=== PATIENT | female | born 1980 | race Hispanic/Latino ===

== ENCOUNTER 2018-11-22 13:02 | Emergency (ER) | payer OTHER ==
[2018-11-22] MEDS ORDERED: Dexamethasone 4 mg/ml Vial ONE (13:19)
== END 2018-11-22 15:10 | disposition home or self-care (01) ==
LOC: ERS 13:02
DX: J45.901 Unspecified asthma with (acute) exacerbation (principal); F41.9 Anxiety disorder, unspecified; F17.210 Nicotine dependence, cigarettes, uncomplicated; Z79.51 Long term (current) use of inhaled steroids
CPT/HCPCS: 94640; J1100; J7620

== ENCOUNTER 2019-03-13 09:19 | Inpatient (IN) | payer OTHER, SELFPAY ==
[2019-03-13] MEDS ORDERED: Albuterol Sulfate 2.5 mg/3 ml Neb ONE ×2 (09:44→10:50)
[2019-03-13 09:47] LABS: #Lymphocytes 0.7 thou/uL (1.20-3.40); #Monocytes 0.5 thou/uL (0.11-0.59); #Neutrophils 4.7 thou/uL (1.40-6.50); %Basophils 0.2 % (0.0-1.0); %Eosinophils 0.1 % (0.0-10.0); %Lymphocytes 11.4 % (21.0-51.0); %Monocytes 7.7 % (0.0-10.0); %Neutrophils 80.7 % (42.0-75.0); Hemoglobin 14.8 g/dL (12.0-16.0); Mean Corpuscular HGB CONC 33.7 g/dL (32.0-36.0); Mean Corpuscular Hemoglobin 30.9 pg (27.0-31.0); Mean Corpuscular Volume 91.6 fL (78.0-98.0); Platelet Count 168 thou/uL (130-400); RBC Distribution Width 13.3 % (11.5-14.5); White Blood Cell (WBC) Count 5.8 thou/uL (4.8-10.8)
--- NOTE | 2019-03-13 09:50 | RAD ---
Chest AP view INDICATION: Shortness of breath with cough headache and fever COMPARISON: July 19, 2016 FINDINGS: Lungs:Accounting for exam technique, the lungs are clear. No consolidation is evident. Cardiac silhouette:The cardiomediastinal silhouette appears within normal limits. Pulmonary vasculature:Normal Pleural spaces:No pleural effusion or pneumothorax is demonstrated. Upper abdomen:Cholecystectomy clips Osseous structures: No acute osseous abnormality. Additional findings:None. IMPRESSION: No acute cardiopulmonary abnormality.
[2019-03-13] MEDS ORDERED: methylPREDNISolone Sod Succ/PF 125 MG/2 ML VIAL ONE (09:57)
[2019-03-13] MEDS ORDERED: Acetaminophen 325 MG TAB ONE (09:57)
[2019-03-13] MEDS ORDERED: cefTRIAXone\\ROCEPHIN 2 GM VIAL ONE (09:57)
[2019-03-13 10:26] LABS: Albumin 4.2 g/dL (3.5-5.0); Anion Gap 14 mmol/L (10-20); Bilirubin, Total 1.3 mg/dL (0.2-1.2); Carbon Dioxide 22 mmol/L (22-29); Chloride 100 mmol/L (98-107); Globulin 2.9 g/dL (2.4-3.5); Glucose 103 mg/dL (70-105); Potassium 3.7 mmol/L (3.5-5.1); Protein, Total 7.1 g/dL (6.0-8.3); Sodium 132 mmol/L (136-145)
[2019-03-13 10:40] LABS: ALT (SGPT) 37 U/L (8-55); AST (SGOT) 33 U/L (5-34); Alkaline Phosphatase 82 U/L (40-110); BUN (Urea Nitrogen) 7 mg/dL (7.0-18.7); Calc. Creatinine Clearance 0 mL/min (70-130); Estimated GFR-MDRD 86
[2019-03-13] MEDS ORDERED: Magnesium 2 GM/50 ML BAG (IN WATER) ONE (10:40)
[2019-03-13] MEDS ORDERED: Azithromycin 500 MG VIAL ONE (10:41)
[2019-03-13] MEDS ORDERED: Bisacodyl 10 MG SUPP PR PRN (12:04)
[2019-03-13] MEDS ORDERED: Senokot S 8.6-50 MG TAB PO PRN (12:04)
[2019-03-13] MEDS ORDERED: Ondansetron PF 4 MG/2 ML Vial IVP PRN (12:04)
[2019-03-13] MEDS ORDERED: Guaifenesin DM 100-10/5 ML UDCUP PO PRN (12:04)
--- NOTE | 2019-03-13 12:44 | HP ---
REASON FOR ADMISSION: Acute asthma exacerbation, acute respiratory failure with hypoxia on BiPAP. HISTORY OF PRESENTING ILLNESS: The patient gives history of having cough with shortness of breath from last 2 days. Last night, she could not sleep, drink, or eat anything. She has cough with expectoration of yellow sputum. Had a fever at home. On arrival, had temperature of 101.4 degrees here. She states that she has had a flu shot for this year. She admits to using meth 3 days back and smokes 2 to 3 cigarettes a day. No complaints of chest pain or palpitation. The patient has had prior hospitalizations here for asthma exacerbation. PAST MEDICAL AND SURGICAL HISTORY: History of asthma, prior upper endoscopy done in July 2015 with possible eosinophilic esophagitis seen with erosive gastritis, prior history of multiple infections in her hand and left leg with staph. She has had surgery on the left hand in 2009, cholecystectomy, and left foot surgery. CURRENT MEDICATION: Clonidine p.r.n. for anxiety. ALLERGIES: ALLERGIC TO SULFA AND TRIMETHOPRIM. PERSONAL HISTORY: Smokes 2 to 3 cigarettes. Drinks only on the weekends. Has used meth 3 days back. Does not use cocaine, but uses marijuana. Works as a cook at [employer]. She stays with her friends. Has 2 children, 11 and 13 years old. FAMILY HISTORY: Mother has hypertension and diabetes. Grandmother has had breast cancer. CODE STATUS: Full. Power of science teacher is a children's father, Mr. Dave Medina. REVIEW OF SYSTEMS: CONSTITUTIONAL: Negative for weight loss or gain, ability to conduct usual activities. SKIN: Negative for rash, itching. EYES: Negative for double vision, pain. ENT/MOUTH: Negative for nose bleeding, neck stiffness, pain, tenderness. CARDIOVASCULAR: Negative for palpitations, dyspnea on exertion, orthopnea. RESPIRATORY: Negative for shortness of breath, wheezing, cough, hemoptysis, fever or night sweats. GASTROINTESTINAL: Negative for poor appetite, abdominal pain, heartburn, nausea , vomiting, constipation, or diarrhea. GENITOURINARY: Negative for urgency, frequency, dysuria, nocturia. MUSCULOSKELETAL: Negative for pain, swelling. NEUROLOGIC/PSYCHIATRIC: Negative for anxiety, depression. ALLERGY/IMMUNOLOGIC: Negative for skin rash, bleeding tendency. PHYSICAL EXAMINATION: GENERAL: The patient is a 39-year-old female, who is currently in moderate respiratory distress on BiPAP. VITAL SIGNS: Blood pressure 130/76, pulse 110 per minute, respiratory rate 26 per minute, temperature 101.4 degrees Fahrenheit, and saturating 93% on BiPAP. NECK: Supple. No elevated JVD. HEENT: Eyes; extraocular muscles intact. Pupils reacting to light. Oral cavity, mucous membranes are dry. No exudates or congestion. CARDIOVASCULAR: S1 and S2 heard. Regular rhythm, but tachycardic. RESPIRATORY: Air entry 1+ bilateral. Wheezes plus extensive both sides. ABDOMEN: Soft. Bowel sounds heard. No tenderness, rigidity, or guarding. EXTREMITIES: No peripheral edema or calf tenderness. VASCULAR: Peripheral pulses 1+ bilateral. No ischemic ulcerations or gangrene. CENTRAL NERVOUS SYSTEM: No gross focal deficits noted. The patient is alert and oriented well. PSYCHIATRIC: The patient's mood is euthymic. No hallucinations or delusions. LABORATORY DATA: Chest x-ray done shows no acute cardiopulmonary abnormalities. Influenza A and B antigens were negative. Electrolytes are stable. BUN 4, creatinine 0.7, total bilirubin 1.3. AST, ALT, and alkaline phosphatase within normal limits. Albumin 4.2. White count of 5.8, hemoglobin and hematocrit of 14 and 44, platelet count 168, MCV is 91 with 80% neutrophils. CLINICAL IMPRESSION AND PLAN: The patient will be admitted to IM for severe asthma exacerbation with acute respiratory failure with hypoxia. She is currently tolerating BiPAP. She has received magnesium sulfate 2 g IV, multiple nebulizations, ceftriaxone, and Zithromax along with 125 mg Solu-Medrol in the ER. She has also received a total of 2 L IV fluid in the ER. We will continue her on DuoNebs, empiric Levaquin, Solu-Medrol 40 mg IV q.6 hourly, and normal saline at 80 mL per hour. We will consult Dr. Chappell, who is on-call for Pulmonology. Blood cultures have been obtained in the ER. Urine and viral respiratory pathogen, PCR will be obtained as well. We will continue to closely monitor her in IM. Prior to discharge, she will be optimized on asthma medications. She was also counseled with regard to substance use. We will obtain a urine drug screen to find out if there are any other drugs other than meth and marijuana that she used 3 days back. Job ID: [id number] [facility]
[2019-03-13 12:50] LABS: Acetaminophen Less than 6.0 mcg/mL (10.0-30.0); Alcohol Less than 10 mg/dL (Less than 10); Salicylate Less than 8.0 mg/dL (15.0-30.0)
[2019-03-13 14:41] VITALS: BMI 26.9
[2019-03-13 15:29] LABS: Amphetamine Detected (NotDetected); Barbiturates Screen Not Detected (NotDetected); Benzodiazepine Screen Not Detected (NotDetected); Cocaine Metabolite Screen Not Detected (NotDetected); Medtox Control Line Valid? VALID (VALID); Medtox Reader # READER 4; Methadone Not Detected (NotDetected); Methamphetamine Detected (NotDetected); Opiate Screen Not Detected (NotDetected); Oxycodone Screen Not Detected (NotDetected); Phencyclidine (PCP) Not Detected (NotDetected); THC/Cannabinoid Screen Not Detected (NotDetected); Tricyclic Screen Not Detected (NotDetected)
[2019-03-13] MEDS: methylPREDNISolone Sod Succ 40 MG VIAL IVP SCH ×3 (15:34→23:29)
[2019-03-13] MEDS: Levofloxacin 750 mg/D5W 500 MG in Premix Bag 1 BAG IVPB SCH (15:35)
[2019-03-13] MEDS: Sodium Chloride 0.9% 1,000 ML IV SCH ×2 (15:35→20:53)
[2019-03-13] MEDS ORDERED: Magnesium 2 GM/50 ML 2 GM in Premix Bag 1 BAG IVPB SCH (16:30)
--- NOTE | 2019-03-13 16:46 | CON ---
DATE OF CONSULTATION: 03/13/2019 HISTORY OF PRESENT ILLNESS: Delfina Cruz is a 39-year-old female with longstanding history of tobacco abuse, 2 years ago, substance abuse, who now presented with a several-day history of increasing shortness of breath, coughing, and wheezing. She apparently has asthma. Unresponsive to her usual rescue inhaler. She sees a local physician here locally. PAST MEDICAL HISTORY: Otherwise pertinent for hypertension; it is unclear whether she takes any medication. History of cellulitis and history of apparently autoimmune disease. PREVIOUS SURGERIES: Cholecystectomy. Staph infection, foot. SOCIAL HISTORY: Drinks alcohol. Smokes. Abuse meth in the past. She is a cook. ALLERGIES: APPARENTLY SULFA. HOME MEDICATIONS: Supposed to include Catapres 0.1 twice a day and Ativan p.r.n. REVIEW OF SYSTEMS: Otherwise, negative. PHYSICAL EXAMINATION: VITAL SIGNS: Sats are 96% on room air, temperature 98, and blood pressure 138/80. CHEST: Bilateral wheezing, prolonged expiration. CARDIAC: Normal S1, S2. No gallops. ABDOMEN: No masses. LABORATORY DATA: Sodium 132. Toxicology screen shows methamphetamines, salicylates. Flu test was negative. IMPRESSION: Chronic obstructive pulmonary disease, asthma exacerbation, ongoing drug abuse, but claims she is not using any. PLAN: Agree with steroids, neb treatments, empiric antibiotics. She is ongoing counseling regarding her drug abuse problem. This is a consultation note, 70 minutes, 50% direct patient care. Job ID: [id number]
[2019-03-13] MEDS: Mometasone/Formoterol 120 PUFF INHALER INH SCH (19:31)
[2019-03-13] MEDS: Famotidine 20 MG TAB PO SCH (20:54)
[2019-03-14] MEDS: Acetaminophen 325 MG TAB PO PRN ×2 (02:18→16:06)
[2019-03-14] MEDS ORDERED: Mometasone/Formoterol 120 PUFF INHALER ONE (06:56)
[2019-03-14] MEDS: Mometasone/Formoterol 120 PUFF INHALER INH SCH (07:13)
[2019-03-14] MEDS ORDERED: Enoxaparin Sodium 40 MG/0.4 ML SYRINGE SC SCH (09:00)
[2019-03-14 12:16] VITALS: BP 126/77
[2019-03-14] MEDS: methylPREDNISolone Sod Succ 40 MG VIAL IVP SCH ×2 (12:16→12:33)
[2019-03-14] MEDS: Famotidine 20 MG TAB PO SCH (12:17)
[2019-03-14] MEDS: Levofloxacin 750 mg/D5W 500 MG in Premix Bag 1 BAG IVPB SCH (12:33)
--- NOTE | 2019-03-14 14:14 | PRG ---
DATE OF SERVICE: 03/14/2019 SUBJECTIVE: This morning, she is better, less short of breath, less cough, and less wheezing. Her drug screen was positive for methamphetamine and amphetamine. OBJECTIVE: VITAL SIGNS: Saturations are 100% on room air, respiratory rate 18, temperature 98, blood pressure 120/77. CHEST: Minimal wheezing. CARDIAC: Normal S1 and S2. No gallops. ABDOMEN: No mass. IMPRESSION: Chronic obstructive pulmonary disease, bronchial asthma exacerbation, drug abuse. Switch over to oral medication. She can probably be transferred to monitored bed. Pulmonary/Critical Care will follow. Job ID: [id number]
[2019-03-14 15:22] VITALS: TEMP 98.6
[2019-03-14] MEDS ORDERED: predniSONE 20 MG TAB PO SCH (17:00)
[2019-03-14 18:41] LABS: Hemoglobin 12.6 g/dL (12.0-16.0); Red Blood Cell (RBC) Count 4.09 mill/uL (4.20-5.40); White Blood Cell (WBC) Count 3.3 thou/uL (4.8-10.8)
[2019-03-14 18:42] LABS: Mean Corpuscular HGB CONC 33.2 g/dL (32.0-36.0); Mean Corpuscular Hemoglobin 30.8 pg (27.0-31.0); Mean Corpuscular Volume 92.7 fL (78.0-98.0); Platelet Count 134 thou/uL (130-400); RBC Distribution Width 13.3 % (11.5-14.5)
[2019-03-14 18:43] LABS: #Lymphocytes 0.3 thou/uL (1.20-3.40); #Monocytes 0.2 thou/uL (0.11-0.59); #Neutrophils 2.8 thou/uL (1.40-6.50); %Basophils 0.2 % (0.0-1.0); %Eosinophils 0.2 % (0.0-10.0); %Lymphocytes 9.3 % (21.0-51.0); %Neutrophils 83.4 % (42.0-75.0); Mean Platelet Volume 9.1 fL (7.4-10.4)
[2019-03-14 18:50] LABS: Anion Gap 7 mmol/L (10-20); BUN (Urea Nitrogen) 9 mg/dL (7.0-18.7); Calc. Creatinine Clearance 127 mL/min (70-130); Carbon Dioxide 24 mmol/L (22-29); Chloride 109 mmol/L (98-107); Estimated GFR-MDRD Greater than 90; Sodium 137 mmol/L (136-145)
[2019-03-14 18:51] LABS: Calcium 8.4 mg/dL (7.8-10.44); Glucose 188 mg/dL (70-105)
--- NOTE | 2019-03-14 21:59 | DIS ---
DATE OF ADMISSION: 03/13/2019 DATE OF DISCHARGE: 03/14/2019 PRIMARY CARE PROVIDER: Alex Fernandes MD DISCHARGE DIAGNOSES: 1. Asthma exacerbation. 2. Tobacco abuse. 3. Recreational drug use. 4. Hyponatremia. CONDITION OF PATIENT ON THE DAY OF DISCHARGE: Stable. I assessed Ms. Cruz on the day of discharge. She denies any chest pain or shortness of breath. Vital signs are stable. S1 and S2 are heard, regular. Lungs are clear to auscultation bilaterally. CONSULTATIONS DURING THIS HOSPITALIZATION: Pulmonary and Critical Care Medicine , Dr. Chappell. DISCHARGE MEDICATIONS: 1. Clonidine 0.1 mg 2 times a day. 2. Lorazepam 2 mg at bedtime. 3. Levofloxacin 500 mg daily for 1 week. 4. Dulera 200/5 mcg two puffs 2 times a day. 5. Oral prednisone taper. HOSPITAL COURSE: Ms. Cruz is a pleasant 39-year-old lady, who was admitted to [facility] on March 13, 2019, for asthma exacerbation. Please refer to Dr. Jones's history and physical note dated March 13, 2019, for further details. She improved with oxygen, bronchodilators, steroids and antibiotics. She was seen by Pulmonary and Critical Care Medicine. She has been cleared for discharge home. At the time of this dictation, final blood culture reports are pending. She is advised to follow up with her primary care provider for the same. She is also advised to stop tobacco and recreational drug use. POST-ACUTE DISCHARGE FOLLOWUP: With primary care provider in 3 to 5 days. DIET: Regular. ACTIVITY: As tolerated. DISCHARGE DESTINATION: Home. TIME SPENT: Total amount of time spent coordinating this discharge: 32 minutes. Job ID: [id number] MTDD
--- NOTE | 2019-03-16 01:59 | PQF ---
[employer] Crystal Reports Winform Viewer DIONE, FAVIOLA COLLAZO [id number] CLINICAL DOCUMENTATION CLARIFICATION FORM: POST DISCHARGE Addendum to original discharge summary date: ____ Late entry note date: __ DATE: 03/16/19 ATTN: Faviola Escobar Please exercise your independent, professional judgment in responding to the clarification form. Clinical indicators are provided on the bottom of this form for your review Can you please further clarify if acute respiratory failure with hypoxia is ruled in or ruled out? Acute respiratory failure with hypoxia [ ] Ruled in diagnosis [ ] Continue to treat [ ] Resolved [ ] Ruled out diagnosis [ ] Cannot rule out diagnosis [ x ] Other diagnosis ___Acute respiratory failure (no evidence of hypoxia) ___ [ ] Unable to determine In addition, please specify: Present on Admission (POA): [ x ] Yes [ ] No [ ] Unable to determine For continuity of documentation, please document condition throughout progress notes and discharge summary. Thank You. CLINICAL INDICATORS - SIGNS / SYMPTOMS / LABS H and P pg.1- Reason for admission acute asthma exacerbation , acute respiratory failure with hypoxia H and P pg.2- the patient will admitted to [facility] for severe asthma exacerbation with acute respiratory failure with hypoxia DS pg.1- discharge diagnoses: asthma exacerbation RISK FACTORS Asthma- H and P pg.1 Smokes 2-3 cigarettes per day- H and P pg.1 COPD exacerbation- Consult Dr. Chappell pg.1 Drug abuse- Consult Dr. Chappell. pg.1 TREATMENTS BiPAP- H and P pg.2 multiple nebulization- H and P pg.2 Solu-Medrol- H and P pg.2 IV Antibiotics- MAR Pulmonary consult 03/13 Dr. Chappell IV fluids- JUN Chest X ray 03/13 (This form is maintained as a part of the permanent medical record) 2014 [employer]. All Rights Reserved [email or web address] [not provided] [email or web address]
--- NOTE | 2019-03-16 21:31 | PQF ---
[employer] Implementation Coordinator Crystal Reports Winform Viewer OKSAAN PARHAM DAVID [id number] CLINICAL DOCUMENTATION CLARIFICATION FORM: POST DISCHARGE Addendum to original discharge summary date: ____ Late entry note date: __ DATE: 03/16/19 ATTN: Moo Escobar Please exercise your independent, professional judgment in responding to the clarification form. Clinical indicators are provided on the bottom of this form for your review Can you please further clarify the relationship of acute respiratory failure/ asthma exacerbation and drug abuse? Please check appropriate box(s): [ ] acute respiratory failure/asthma exacerbation is due Drug abuse [x ] acute respiratory failure/asthma exacerbation is not due to Drug abuse [ ] Other diagnosis [ ] Unable to determine In addition, please specify: Present on Admission (POA): [ ] Yes [ ] No [ ] Unable to determine For continuity of documentation, please document condition throughout progress notes and discharge summary. Thank You. CLINICAL INDICATORS - SIGNS / SYMPTOMS / LABS H and P pg.1- she admits to using meth 3 days back and smokes w to 3 cigarettes a day H and P pg.1- Reson for admission acute asthma exacerbation , acute respiratory failure with hypoxia H and P pg.2- the patient will admitted to [facility] for severe asthma exacerbation with acute respiratory failure with hypoxia DS pg.1- discharge diagnoses: asthma exacerbation H and P pg.1- Does not use cocaine, but used marijuana Consult 03/13 Dr. Chappell og.1- Laboratory data: toxicology screen shows methamphetamines salicylates DS pg.1- recreational drug use RISK FACTORS Asthma- H and P pg.1 Smokes 2-3 cigarettes per day- H and P pg.1 COPD- Consult Dr. Chappell pg.1 Drug abuse- Consult Dr. Chappell. pg.1 TREATMENTS: Counseled with regard to substance use- H and P pg.3 BiPAP- H and P pg.2 multiple nebulization- H and P pg.2 Solu-medrol- H and P pg.2 IV Antibiotics- JUN Pulmonary consult 03/13 Dr. Chappell IV fluids- JUN Chest X ray 03/13 Toxicology- Laboratory (This form is maintained as a part of the permanent medical record) 2014 [employer]. All Rights Reserved [email or web address] [not provided] MTDD
== END 2019-03-14 17:30 | disposition home or self-care (01) | DRG 189 ==
LOC: ERS 09:19 → IMCU/EMU 14:30
PROVIDERS: ADMIT Internal Medicine; ATTEND Internal Medicine
PROC: 5A09357 Assistance with Respiratory Ventilation, Less than 24 Consecutive Hours, Continuous Positive Airway Pressure (ICD-10-PCS; principal; 2019-03-13)
DX: J96.00 Acute respiratory failure, unspecified whether with hypoxia or hypercapnia (principal); J45.901 Unspecified asthma with (acute) exacerbation; E87.1 Hypo-osmolality and hyponatremia; F17.210 Nicotine dependence, cigarettes, uncomplicated; J44.9 Chronic obstructive pulmonary disease, unspecified; F41.9 Anxiety disorder, unspecified; I10 Essential (primary) hypertension; F15.10 Other stimulant abuse, uncomplicated; Z90.49 Acquired absence of other specified parts of digestive tract; Z88.2 Allergy status to sulfonamides; Z88.1 Allergy status to other antibiotic agents; Z79.899 Other long term (current) drug therapy
CPT/HCPCS: 36415; 71045; 80048; 80053; 80306; 80307; 83605; 85025; 87040; 87804; 93005; 94640; 94644; 94660; 96361; 96365; 96375; J0456; J0696; J1956; J2920; J2930; J3475; J7512; J7611; J7620

== ENCOUNTER 2020-08-03 20:51 | Emergency (ER) | payer OTHER ==
[2020-08-04 04:57] LABS: SARS-CoV-2 PCR by NAA Not Detected (NotDetected)
== END 2020-08-03 22:00 | disposition home or self-care (01) ==
LOC: ERS 20:51
DX: J45.901 Unspecified asthma with (acute) exacerbation (principal); Z20.822 Contact with and (suspected) exposure to COVID-19; F17.210 Nicotine dependence, cigarettes, uncomplicated; Z79.899 Other long term (current) drug therapy
CPT/HCPCS: 71046; 87635; 94640; J7620; U0003; U0005

== ENCOUNTER 2020-08-13 15:12 | Inpatient (IN) | payer OTHER ==
[~2020-08-13 15:12] MED LIST: Iopamidol-370 76% 500 ML 1 ML ONE
[2020-08-13 15:56] LABS: Hemoglobin 14.4 g/dL (12.0-16.0); Mean Corpuscular HGB CONC 33.8 g/dL (32.0-36.0); Mean Corpuscular Hemoglobin 30.5 pg (27.0-31.0); Mean Corpuscular Volume 90.1 fL (78.0-98.0); Mean Platelet Volume 8.5 fL (7.4-10.4); Platelet Count 201 thou/uL (130-400); RBC Distribution Width 12.5 % (11.5-14.5); Red Blood Cell (RBC) Count 4.74 mill/uL (4.20-5.40); White Blood Cell (WBC) Count 9.9 thou/uL (4.8-10.8)
[2020-08-13] MEDS ORDERED: Acetaminophen 500 MG TAB ONE (16:12)
[2020-08-13] MEDS ORDERED: Dexamethasone 10 MG/ML VIAL ONE (16:12)
[2020-08-13 16:14] LABS: ALT (SGPT) 14 U/L (8-55); AST (SGOT) 18 U/L (5-34); Albumin 4.3 g/dL (3.5-5.0); Alkaline Phosphatase 89 U/L (40-110); Anion Gap 15 mmol/L (10-20); BUN (Urea Nitrogen) 14 mg/dL (7.0-18.7); Bilirubin, Total 0.6 mg/dL (0.2-1.2); Calc. Creatinine Clearance 0 mL/min (70-130); Calcium 9.3 mg/dL (7.8-10.44); Carbon Dioxide 22 mmol/L (22-29); Chloride 107 mmol/L (98-107); Globulin 3.3 g/dL (2.4-3.5); Glucose 116 mg/dL (70-105); Potassium 3.9 mmol/L (3.5-5.1); Protein, Total 7.6 g/dL (6.0-8.3); Sodium 140 mmol/L (136-145)
[2020-08-13 16:24] LABS: Band 10 % (5-11); Lymphocytes 4 % (21-51); MDiff Complete? YES; Monocytes 7 % (0-10); Myelocyte 1 % (0-0); Neutrophil 74 % (42-75); Reactive Lymphocytes 4 % (0-10)
[2020-08-13] MEDS ORDERED: cefTRIAXone\\ROCEPHIN 1 GM VIAL ONE (17:03)
[2020-08-13] MEDS ORDERED: Azithromycin 500 MG VIAL ONE (17:03)
[2020-08-13] MEDS ORDERED: Albuterol 200 PUFF (6.7GM INHALER) ONE (17:10)
[2020-08-13 17:34] LABS: SARS-CoV-2 NAA Rapid Test Not Detected (NotDetected)
[2020-08-13 20:25] VITALS: BMI 31.6
[2020-08-13] MEDS ORDERED: Bisacodyl 5 MG TAB PO PRN (21:26)
[2020-08-13] MEDS ORDERED: HYDROcodone/Acetaminophen 10/325 mg Tablet PO PRN (21:26)
[2020-08-13] MEDS ORDERED: hydrALAZINE 20 MG/ML VIAL SLOW IVP PRN (21:29)
[2020-08-13] MEDS ORDERED: Ivermectin 3 MG TAB PO SCH (21:30)
[2020-08-13] MEDS: cefTRIAXone\\ROCEPHIN 1 GM in Sodium Chloride 0.9% 100 ML IVPB SCH (22:49)
[2020-08-13] MEDS: Nicotine 21 MG PATCH TD SCH (23:03)
[2020-08-13] MEDS: methylPREDNISolone Sod Succ 40 MG VIAL IVP SCH (23:03)
[2020-08-13] MEDS: Guaifenesin DM 100-10/5 ML UDCUP PO PRN (23:39)
[2020-08-13] MEDS: Acetaminophen 325 MG TAB PO PRN (23:39)
[2020-08-14] MEDS: Albuterol 200 PUFF (6.7GM INHALER) INH SCH ×4 (01:38→18:32)
[2020-08-14] MEDS: Guaifenesin DM 100-10/5 ML UDCUP PO PRN ×2 (05:57→20:32)
[2020-08-14] MEDS: methylPREDNISolone Sod Succ 40 MG VIAL IVP SCH ×3 (05:57→18:31)
[2020-08-14 06:14] LABS: Band 8 % (5-11); Hemoglobin 14.2 g/dL (12.0-16.0); Lymphocytes 6 % (21-51); MDiff Complete? YES; Mean Corpuscular HGB CONC 30.7 g/dL (32.0-36.0); Mean Corpuscular Hemoglobin 28.1 pg (27.0-31.0); Mean Corpuscular Volume 91.4 fL (78.0-98.0); Mean Platelet Volume 8.5 fL (7.4-10.4); Monocytes 2 % (0-10); Neutrophil 84 % (42-75); Platelet Count 217 thou/uL (130-400); Platelet Morphology Comment Appears Adequate; RBC Distribution Width 12.7 % (11.5-14.5); Red Blood Cell (RBC) Count 5.04 mill/uL (4.20-5.40); White Blood Cell (WBC) Count 7.4 thou/uL (4.8-10.8)
[2020-08-14 06:28] LABS: ALT (SGPT) 19 U/L (8-55); AST (SGOT) 17 U/L (5-34); Albumin 4.4 g/dL (3.5-5.0); Alkaline Phosphatase 84 U/L (40-110); Anion Gap 12 mmol/L (10-20); BUN (Urea Nitrogen) 16 mg/dL (7.0-18.7); Bilirubin, Total 0.4 mg/dL (0.2-1.2); Calc. Creatinine Clearance 118 mL/min (70-130); Calcium 9.6 mg/dL (7.8-10.44); Carbon Dioxide 23 mmol/L (22-29); Chloride 105 mmol/L (98-107); Globulin 3.4 g/dL (2.4-3.5); Glucose 158 mg/dL (70-105); Potassium 3.8 mmol/L (3.5-5.1); Protein, Total 7.8 g/dL (6.0-8.3); Sodium 136 mmol/L (136-145)
[2020-08-14] MEDS: Zinc Sulfate 220 MG CAP PO SCH (07:49)
[2020-08-14] MEDS: Enoxaparin Sodium 40 MG/0.4 ML SYRINGE SC SCH (07:49)
[2020-08-14] MEDS: Famotidine 20 MG TAB PO SCH ×2 (07:49→20:31)
[2020-08-14] MEDS: Acetaminophen 325 MG TAB PO PRN ×2 (09:42→20:33)
[2020-08-14 13:42] LABS: SARS-CoV-2 PCR by NAA Not Detected (NotDetected)
[2020-08-14 17:05] LABS: Amphetamine Not Detected (NotDetected); Barbiturates Screen Not Detected (NotDetected); Benzodiazepine Screen Not Detected (NotDetected); Cocaine Metabolite Screen Not Detected (NotDetected); Medtox Control Line Valid? VALID (VALID); Medtox Reader # READER 4; Methadone Not Detected (NotDetected); Methamphetamine Not Detected (NotDetected); Opiate Screen Not Detected (NotDetected); Oxycodone Screen Not Detected (NotDetected); Phencyclidine (PCP) Not Detected (NotDetected); THC/Cannabinoid Screen Not Detected (NotDetected); Tricyclic Screen Not Detected (NotDetected)
[2020-08-14] MEDS: Nicotine 21 MG PATCH TD SCH (21:11)
[2020-08-14] MEDS: cefTRIAXone\\ROCEPHIN 1 GM in Sodium Chloride 0.9% 100 ML IVPB SCH (21:12)
[2020-08-15] MEDS: methylPREDNISolone Sod Succ 40 MG VIAL IVP SCH ×2 (00:23→05:41)
[2020-08-15] MEDS: Albuterol 200 PUFF (6.7GM INHALER) INH SCH ×2 (00:23→06:06)
[2020-08-15 02:19] LABS: Pregnancy Test - Urine (BHCG) Negative (Negative); Pregu Control Background? CLEAR/WHITE (CLR/WHITE); Pregu Control Bar Appear? YES (CONTROL BAR); Specific Gravity 1.038 (1.002-1.036)
[2020-08-15] MEDS: Guaifenesin DM 100-10/5 ML UDCUP PO PRN (05:49)
[2020-08-15] MEDS ORDERED: predniSONE 20 MG TAB PO SCH (08:00)
[2020-08-15] MEDS: Famotidine 20 MG TAB PO SCH (08:09)
[2020-08-15] MEDS: Zinc Sulfate 220 MG CAP PO SCH (08:10)
[2020-08-15] MEDS: Enoxaparin Sodium 40 MG/0.4 ML SYRINGE SC SCH (08:11)
[2020-08-15] MEDS ORDERED: Doxycycline 100 MG CAP PO SCH (09:00)
[2020-08-15 14:52] VITALS: BP 133/93; TEMP 98
[2020-08-15] MEDS ORDERED: Mometasone 200 MCG/Formoterol 5 MCG 120 PUFF INHALER INH SCH (18:30)
== END 2020-08-15 13:31 | disposition home or self-care (01) | DRG 189 ==
LOC: ERS 15:12 → T4-B 18:34
PROVIDERS: ADMIT Internal Medicine; ATTEND Internal Medicine
DX: J96.01 Acute respiratory failure with hypoxia (principal); J45.41 Moderate persistent asthma with (acute) exacerbation; F41.9 Anxiety disorder, unspecified; Z20.822 Contact with and (suspected) exposure to COVID-19; F17.210 Nicotine dependence, cigarettes, uncomplicated; I10 Essential (primary) hypertension; K21.9 Gastro-esophageal reflux disease without esophagitis; Z90.49 Acquired absence of other specified parts of digestive tract; Z88.1 Allergy status to other antibiotic agents; Z88.2 Allergy status to sulfonamides; Z79.52 Long term (current) use of systemic steroids; Z79.899 Other long term (current) drug therapy
CPT/HCPCS: 0240U; 36415; 71045; 71275; 80053; 80306; 81025; 85007; 85025; 85027; 85652; 86140; 87040; 87635; 93005; 94664; 96365; 96367; 96375; J0456; J0696; J1100; J1650; J2920; J3490; J7512; Q9967; U0003; U0005

== ENCOUNTER 2023-05-13 22:32 | Inpatient (IN) | payer OTHER, SELFPAY ==
[2023-05-13] MEDS ORDERED: Albuterol 2.5 MG (3 mL) NEB ONE (22:57)
[2023-05-13] MEDS ORDERED: Ipratropium/Albuterol 3 ML NEB ONE (22:57)
[2023-05-13] MEDS ORDERED: Albuterol 2.5 MG (0.5 mL) NEB ONE (22:57)
[2023-05-13 23:11] LABS: #Eosinphils 0.8 thou/uL (0.0-0.7); #Monocytes 0.8 thou/uL (0.11-0.59); #Neutrophils 5.1 thou/uL (1.40-6.50); %Basophils 0.4 % (0.0-1.0); %Eosinophils 10.5 % (0.0-10.0); %Lymphocytes 11.8 % (21.0-51.0); %Monocytes 9.9 % (0.0-10.0); %Neutrophils 67.1 % (42.0-75.0); Hematocrit 43.5 % (36.0-47.0); Hemoglobin 14.8 g/dL (12.0-16.0); Mean Corpuscular Hemoglobin 30.1 pg (27.0-31.0); Mean Corpuscular Volume 88.4 fl (78.0-98.0); Platelet Count 242 10x3/uL (130-400); RBC Distribution Width 15.3 % (11.5-14.5); Red Blood Cell (RBC) Count 4.92 mill/uL (4.20-5.40); White Blood Cell (WBC) Count 7.6 10x3/uL (4.8-10.8)
[2023-05-13 23:40] LABS: ALT (SGPT) 17 U/L (8-55); AST (SGOT) 24 U/L (5-34); Albumin 4.6 g/dL (3.5-5.0); Alkaline Phosphatase 86 U/L (40-110); Anion Gap 18 mmol/L (10-20); BUN (Urea Nitrogen) 11 mg/dL (7.0-18.7); Bilirubin, Total 0.7 mg/dL (0.2-1.2); Calc. Creatinine Clearance 0 mL/min (70-130); Calcium 9.6 mg/dL (7.8-10.44); Carbon Dioxide 18 mmol/L (22-29); Chloride 102 mmol/L (98-107); Estimated GFR 87; Globulin 3.3 g/dL (2.4-3.5); Glucose 109 mg/dL (70-105); Potassium 4.1 mmol/L (3.5-5.1); Protein, Total 7.9 g/dL (6.0-8.3); Sodium 134 mmol/L (136-145)
[2023-05-13] MEDS ORDERED: methylPREDNISolone Sod Succ/PF 125 MG/2 ML VIAL ONE (23:46)
[2023-05-14] MEDS ORDERED: Magnesium 2 GM/50 ML BAG (IN WATER) ONE (01:09)
[2023-05-14] MEDS ORDERED: Calcium Carbonate 500 MG ChewTAB PO PRN (04:05)
[2023-05-14] MEDS ORDERED: Ondansetron ODT 4 MG TAB PO PRN (04:05)
[2023-05-14 04:36] VITALS: BMI 26.3
[2023-05-14 04:45] LABS: SARS-CoV-2 NAA Rapid Test Not Detected (NotDetected)
[2023-05-14] MEDS: Mometasone 200 MCG/Formoterol 5 MCG 120 PUFF INHALER INH SCH (08:09)
[2023-05-14] MEDS: Ipratropium/Albuterol 3 ML NEB NEB SCH (08:09)
[2023-05-14] MEDS: Doxycycline 100 MG CAP PO SCH (09:50)
[2023-05-14] MEDS: Famotidine 20 MG TAB PO SCH (09:50)
[2023-05-14] MEDS: methylPREDNISolone Sod Succ 40 MG VIAL IVP SCH ×2 (09:51→16:49)
[2023-05-14 12:04] LABS: SARS-CoV-2 NAA Rapid Test Not Detected (NotDetected)
[2023-05-14] MEDS: Montelukast Sodium 10 mg Tablet PO SCH (20:12)
[2023-05-14] MEDS: Acetaminophen 325 MG TAB PO PRN (20:13)
[2023-05-15 04:34] LABS: #Monocytes 0.7 thou/uL (0.11-0.59); #Neutrophils 13.1 thou/uL (1.40-6.50); %Basophils 0.1 % (0.0-1.0); %Lymphocytes 4.1 % (21.0-51.0); %Monocytes 4.8 % (0.0-10.0); %Neutrophils 90.5 % (42.0-75.0); Hematocrit 41.5 % (36.0-47.0); Hemoglobin 13.5 g/dL (12.0-16.0); Mean Corpuscular HGB CONC 32.5 g/dL (32.0-36.0); Mean Corpuscular Hemoglobin 29.3 pg (27.0-31.0); Mean Corpuscular Volume 90.2 fl (78.0-98.0); Mean Platelet Volume 11.2 fL (7.4-10.4); Platelet Count 218 10x3/uL (130-400); RBC Distribution Width 15.8 % (11.5-14.5); White Blood Cell (WBC) Count 14.5 10x3/uL (4.8-10.8)
[2023-05-15 05:02] LABS: Anion Gap 12 mmol/L (10-20); BUN (Urea Nitrogen) 19 mg/dL (7.0-18.7); Calc. Creatinine Clearance 100 mL/min (70-130); Calcium 9.5 mg/dL (7.8-10.44); Carbon Dioxide 26 mmol/L (22-29); Chloride 105 mmol/L (98-107); Estimated GFR 101; Glucose 151 mg/dL (70-105); Potassium 4.1 mmol/L (3.5-5.1); Sodium 139 mmol/L (136-145)
[2023-05-15] MEDS: Loratadine 10 MG TAB PO SCH (09:05)
[2023-05-15] MEDS: Oseltamivir 75 MG CAP PO SCH (09:58)
[2023-05-15] MEDS: methylPREDNISolone Sod Succ/PF 125 MG/2 ML VIAL IVP SCH ×2 (09:59→17:32)
[2023-05-15] MEDS: Ipratropium/Albuterol 3 ML NEB NEB SCH ×2 (12:30→14:38)
[2023-05-15] MEDS: Benzocaine/Menthol 1 LOZ LOZ PO PRN (12:32)
[2023-05-15] MEDS: guaiFENesin/DM ER PO SCH (19:24)
[2023-05-16] MEDS: methylPREDNISolone Sod Succ 40 MG VIAL IVP SCH ×2 (03:05→14:26)
[2023-05-16 10:54] LABS: #Monocytes 0.4 thou/uL (0.11-0.59); #Neutrophils 9.6 thou/uL (1.40-6.50); %Monocytes 3.8 % (0.0-10.0); %Neutrophils 90.4 % (42.0-75.0); Hemoglobin 14.1 g/dL (12.0-16.0); Mean Corpuscular HGB CONC 32.8 g/dL (32.0-36.0); Mean Corpuscular Volume 91.5 fl (78.0-98.0); Mean Platelet Volume 10.9 fL (7.4-10.4); Platelet Count 246 10x3/uL (130-400); RBC Distribution Width 15.9 % (11.5-14.5); White Blood Cell (WBC) Count 10.6 10x3/uL (4.8-10.8)
[2023-05-16 11:29] LABS: Anion Gap 15 mmol/L (10-20); BUN (Urea Nitrogen) 18 mg/dL (7.0-18.7); Calc. Creatinine Clearance 99 mL/min (70-130); Calcium 9.5 mg/dL (7.8-10.44); Carbon Dioxide 23 mmol/L (22-29); Chloride 102 mmol/L (98-107); Estimated GFR 99; Glucose 120 mg/dL (70-105); Potassium 4.1 mmol/L (3.5-5.1); Sodium 136 mmol/L (136-145)
[2023-05-16] MEDS: Magnesium 2 GM/50 ML(in water) 2 GM in Premix 1 BAG IVPB SCH (14:26)
[2023-05-16] MEDS: guaiFENesin/Codeine 200 mg/20 mg 10 ml Cup PO PRN (14:27)
[2023-05-17 07:49] VITALS: BP 122/84; TEMP 98.5
[2023-05-17] MEDS: predniSONE 20 MG TAB PO SCH (08:44)
== END 2023-05-17 16:48 | disposition home or self-care (01) | DRG 194 ==
LOC: ERS 22:32 → 2NO 05-14 03:35 → OBSVTOIN 05-14 11:53 → T4-B 05-15 14:56
PROVIDERS: ADMIT Student in an Organized Health Care Education/Training Program; ATTEND Internal Medicine
DX: J10.1 Influenza due to other identified influenza virus with other respiratory manifestations (principal); J45.41 Moderate persistent asthma with (acute) exacerbation; R00.0 Tachycardia, unspecified; N63.20 Unspecified lump in the left breast, unspecified quadrant; F17.210 Nicotine dependence, cigarettes, uncomplicated; Z79.51 Long term (current) use of inhaled steroids; Z79.899 Other long term (current) drug therapy; Z88.8 Allergy status to other drugs, medicaments and biological substances; Z90.49 Acquired absence of other specified parts of digestive tract; Z98.890 Other specified postprocedural states; Z71.6 Tobacco abuse counseling
CPT/HCPCS: 0241U; 36415; 71045; 80048; 80053; 83735; 85025; 93005; 94640; 96365; 96375; 96376; G0378; J2920; J2930; J3475; J7512; J7611; J7620

== ENCOUNTER 2023-08-16 17:00 | Emergency (ER) | payer BC, OTHER ==
[2023-08-16 17:32] LABS: #Basophils Less than 0.03 10x3/uL (0.0-0.2); #Eosinphils Less than 0.03 10x3/uL (0.0-0.7); %Basophils 0.2 % (0.0-1.0); %Eosinophils 0.2 % (0.0-10.0); %Lymphocytes 25.3 % (21.0-51.0); %Monocytes 7.5 % (0.0-10.0); %Neutrophils 66.6 % (42.0-75.0); Hematocrit 40.6 % (36.0-47.0); Hemoglobin 13.6 g/dL (12.0-16.0); Mean Corpuscular HGB CONC 33.5 g/dL (32.0-36.0); Mean Corpuscular Hemoglobin 32.2 pg (27.0-31.0); Mean Corpuscular Volume 96.2 fL (78.0-98.0); Mean Platelet Volume 10.3 fL (7.4-10.4); Platelet Count 236 10x3/uL (130-400); RBC Distribution Width 14.4 % (11.5-14.5); Red Blood Cell (RBC) Count 4.22 mill/uL (4.20-5.40)
[2023-08-16 18:15] LABS: Globulin 3.6 g/dL (2.4-3.5)
[2023-08-16 18:19] LABS: ALT (SGPT) 18 U/L (8-55); AST (SGOT) 21 U/L (5-34); Albumin 4.2 g/dL (3.5-5.0); Alkaline Phosphatase 90 U/L (40-110); Anion Gap 16 mmol/L (10-20); BUN (Urea Nitrogen) 14 mg/dL (7.0-18.7); Bilirubin, Total 0.8 mg/dL (0.2-1.2); Calc. Creatinine Clearance 0 mL/min (70-130); Calcium 9.6 mg/dL (7.8-10.44); Carbon Dioxide 24 mmol/L (22-29); Chloride 102 mmol/L (98-107); Estimated GFR 98; Glucose 100 mg/dL (70-105); Lipase 16 U/L (8-78); Potassium 3.3 mmol/L (3.5-5.1); Protein, Total 7.8 g/dL (6.0-8.3); Sodium 139 mmol/L (136-145)
[2023-08-16] MEDS ORDERED: Ondansetron PF 4 MG/2 ML Vial ONE (18:38)
[2023-08-16] MEDS ORDERED: methylPREDNISolone Sod Succ/PF 125 MG/2 ML VIAL ONE (19:45)
[2023-08-16] MEDS ORDERED: Ipratropium/Albuterol 3 ML NEB ONE (19:45)
[2023-08-16 19:51] LABS: Troponin I Less than 0.010 ng/mL (< 0.028)
[2023-08-16] MEDS ORDERED: Potassium Chloride 20 MEQ TAB ONE (21:14)
[2023-08-16 21:25] LABS: Bilirubin Negative (Negative); Blood, Urine Negative (Negative); CAUTI Indications for Culture Dysuria,urgency,freq; Clarity Turbid (Clear); Glucose, Urine (Dipstick) Normal (Negative); Ketone, Urine 20 mg/dL (Negative); Leukocyte 250 Leu/uL (Negative); Nitrite Negative (Negative); Protein, Urine (Dipstick) 20 mg/dL (Neg-Trace); RBC/HPF 0-3 HPF (0-3); Specific Gravity, Urine 1.025 (1.002-1.036); Urobilinogen 3 mg/dL (Less than 2); WBC/HPF Greater than 50 HPF (0-3); pH, Urine 5.5 (5.0-9.0)
[2023-08-16 21:26] LABS: Bacteria/HPF 1+ HPF (None Seen)
[2023-08-16 21:29] LABS: Urine Culture Reflex Yes Yes
[2023-08-16 21:59] LABS: Pregnancy Test - Urine (BHCG) Negative (Negative); Pregu Control Background? CLEAR/WHITE (CLR/WHITE); Pregu Control Bar Appear? YES (CONTROL BAR); Specific Gravity 1.025 (1.002-1.036)
== END 2023-08-16 21:19 | disposition home or self-care (01) ==
LOC: ERS 17:00
DX: J45.909 Unspecified asthma, uncomplicated (principal); E87.6 Hypokalemia; R19.7 Diarrhea, unspecified; Z55.6 Problems related to health literacy
CPT/HCPCS: 36415; 71045; 80053; 81001; 81025; 83690; 83735; 84484; 85025; 87077; 87086; 87186; 96374; 96375; J2405; J2930; J7620

== ENCOUNTER 2023-10-17 19:46 | Emergency (ER) | payer BC, OTHER ==
[2023-10-17 20:44] LABS: #Basophils Less than 0.03 10x3/uL (0.0-0.2); #Eosinphils Less than 0.03 10x3/uL (0.0-0.7); %Basophils 0.1 % (0.0-1.0); %Eosinophils 0.1 % (0.0-10.0); %Monocytes 7.5 % (0.0-10.0); %Neutrophils 83.8 % (42.0-75.0); Hematocrit 33.7 % (36.0-47.0); Hemoglobin 10.9 g/dL (12.0-16.0); Mean Corpuscular HGB CONC 32.3 g/dL (32.0-36.0); Mean Corpuscular Hemoglobin 27.9 pg (27.0-31.0); Mean Corpuscular Volume 86.4 fL (78.0-98.0); Mean Platelet Volume 10.9 fL (7.4-10.4); Platelet Count 215 10x3/uL (130-400); RBC Distribution Width 15.9 % (11.5-14.5)
[2023-10-17 21:03] LABS: ALT (SGPT) 19 U/L (8-55); AST (SGOT) 18 U/L (5-34); Albumin 3.4 g/dL (3.5-5.0); Alkaline Phosphatase 114 U/L (40-110); Anion Gap 13 mmol/L (10-20); BUN (Urea Nitrogen) 12 mg/dL (7.0-18.7); Bilirubin, Total 0.7 mg/dL (0.2-1.2); Calc. Creatinine Clearance 0 mL/min (70-130); Carbon Dioxide 19 mmol/L (22-29); Chloride 105 mmol/L (98-107); Estimated GFR 96; Globulin 4.5 g/dL (2.4-3.5); Glucose 106 mg/dL (70-105); Potassium 3.6 mmol/L (3.5-5.1); Protein, Total 7.9 g/dL (6.0-8.3); Sodium 133 mmol/L (136-145)
[2023-10-17 21:05] LABS: Troponin I Less than 0.010 ng/mL (< 0.028)
[2023-10-17 21:27] LABS: Influenza A by NAA Not Detected (NotDetected); Influenza B by NAA Not Detected (NotDetected); SARS-CoV-2 NAA Rapid Test Not Detected (NotDetected)
[2023-10-17] MEDS ORDERED: Ketorolac Tromethamine 30 MG (1 mL) VIAL ONE (23:59)
[2023-10-18] MEDS ORDERED: predniSONE 20 MG TAB ONE (00:11)
[2023-10-18 00:38] LABS: Bilirubin Negative (Negative); Blood, Urine Trace (Negative); CAUTI Indications for Culture Fever or rigors; Clarity Clear (Clear); Glucose, Urine (Dipstick) Normal (Negative); Ketone, Urine Negative (Negative); Leukocyte 250 Leu/uL (Negative); Nitrite Negative (Negative); Protein, Urine (Dipstick) 70 mg/dL (Neg-Trace); Specific Gravity, Urine 1.025 (1.002-1.036); Urobilinogen 6 mg/dL (Less than 2); WBC/HPF 21-50 HPF (0-3)
[2023-10-18 00:39] LABS: Bacteria/HPF 1+ HPF (None Seen); Urine Culture Reflex Yes Yes
[2023-10-18] MEDS ORDERED: Albuterol 2.5 MG (0.5 mL) NEB ONE (00:49)
[2023-10-18] MEDS ORDERED: Ipratropium Bromide 2.5 ml Neb ONE (00:50)
== END 2023-10-18 01:45 | disposition home or self-care (01) ==
LOC: ERS 19:46
DX: J01.00 Acute maxillary sinusitis, unspecified (principal); J45.909 Unspecified asthma, uncomplicated; Z55.6 Problems related to health literacy
CPT/HCPCS: 36415; 71045; 80053; 81001; 83605; 84484; 85025; 87040; 87077; 87086; 93005; 96374; J1885; J7512; J7611

== ENCOUNTER 2024-01-17 14:16 | Inpatient (IN) | payer BC, OTHER, SELFPAY ==
[~2024-01-17 14:16] MED LIST changes: -Iopamidol-370 76% 500 ML 1 ML ONE; +Iopamidol-370 76% 500 ML MDV (1 ML CHARGE) ONE
[2024-01-17 14:59] LABS: #Basophils Less than 0.03 10x3/uL (0.0-0.2); %Basophils 0.2 % (0.0-1.0); %Eosinophils 1.3 % (0.0-10.0); %Lymphocytes 16.9 % (21.0-51.0); %Monocytes 5.2 % (0.0-10.0); %Neutrophils 76.1 % (42.0-75.0); Hematocrit 34.1 % (36.0-47.0); Hemoglobin 11.6 g/dL (12.0-16.0); Mean Corpuscular Hemoglobin 29.7 pg (27.0-31.0); Mean Corpuscular Volume 87.4 fL (78.0-98.0); Mean Platelet Volume 9.5 fL (7.4-10.4); Platelet Count 224 10x3/uL (130-400); RBC Distribution Width 15.4 % (11.5-14.5)
[2024-01-17 15:04] LABS: BHCG - Serum Negative (NEGATIVE); Pregs Control Background? CLEAR/WHITE (CLR/WHITE); Pregs Control Bar Appear? YES (CONTROL BAR)
[2024-01-17 15:15] LABS: ALT (SGPT) 22 U/L (8-55); AST (SGOT) 26 U/L (5-34); Albumin 3.6 g/dL (3.5-5.0); Alkaline Phosphatase 84 U/L (40-110); Anion Gap 16 mmol/L (10-20); BUN (Urea Nitrogen) 9 mg/dL (7.0-18.7); Bilirubin, Total 0.7 mg/dL (0.2-1.2); Calc. Creatinine Clearance 0 mL/min (70-130); Calcium 8.4 mg/dL (7.8-10.44); Carbon Dioxide 22 mmol/L (22-29); Chloride 107 mmol/L (98-107); Estimated GFR 104; Globulin 3.3 g/dL (2.4-3.5); Glucose 144 mg/dL (70-105); Potassium 3.3 mmol/L (3.5-5.1); Protein, Total 6.9 g/dL (6.0-8.3); Sodium 142 mmol/L (136-145)
[2024-01-17 15:19] LABS: Troponin I Less than 0.010 ng/mL (< 0.028)
[2024-01-17] MEDS ORDERED: Ipratropium/Albuterol 3 ML NEB ONE (15:51)
[2024-01-17] MEDS ORDERED: methylPREDNISolone Sod Succ/PF 125 MG/2 ML VIAL ONE (15:53)
[2024-01-17] MEDS ORDERED: Ondansetron PF 4 MG/2 ML Vial IVP PRN (17:36)
[2024-01-17] MEDS ORDERED: Acetaminophen 325 MG TAB PO PRN (17:36)
[2024-01-17] MEDS ORDERED: Ondansetron ODT 4 MG TAB PO PRN (17:36)
[2024-01-17] MEDS ORDERED: Azithromycin 500 MG VIAL ONE (18:09)
[2024-01-17] MEDS ORDERED: cefTRIAXone (ROCEPHIN) 2 GM VIAL ONE (18:09)
[2024-01-17 21:13] LABS: Bacteria/HPF None Seen HPF (None Seen); Bilirubin Negative (Negative); Blood, Urine Negative (Negative); CAUTI Indications for Culture Dysuria,urgency,freq; Clarity Clear (Clear); Glucose, Urine (Dipstick) 500 mg/dL (Negative); Ketone, Urine Negative (Negative); Leukocyte Negative Leu/uL (Negative); Nitrite Negative (Negative); Protein, Urine (Dipstick) Negative (Neg-Trace); RBC/HPF 0-3 HPF (0-3); Squamous Epithelial 0-3 HPF (0-3); Urobilinogen Normal mg/dL (Less than 2); WBC/HPF 0-3 HPF (0-3); pH, Urine 6.5 (5.0-9.0)
[2024-01-17 21:14] LABS: Specific Gravity, Urine 1.054 (1.002-1.036)
[2024-01-17 21:15] LABS: Urine Culture Reflex No No
[2024-01-17 21:47] LABS: Magnesium 2.7 mg/dL (1.6-2.6); Phosphorus 3.3 mg/dL (2.3-4.7)
[2024-01-17 21:48] LABS: Iron 63 ug/dL (50-170); Iron Binding Capacity, Total 360 mcg/dL (265-497)
[2024-01-17] MEDS: cefTRIAXone\\ROCEPHIN 1 GM in Sodium Chloride 0.9% 100 ML IVPB SCH (22:45)
[2024-01-17] MEDS: Ipratropium/Albuterol 3 ML NEB NEB SCH (22:49)
[2024-01-17] MEDS: Mometasone 200 MCG/Formoterol 5 MCG 120 PUFF INHALER INH SCH (22:54)
[2024-01-17] MEDS: Doxycycline 100 MG in Sodium Chloride 0.9% 100 ML IVPB SCH (22:58)
[2024-01-17] MEDS: Montelukast Sodium 10 mg Tablet PO SCH (22:58)
[2024-01-17] MEDS: Potassium Chloride 20 MEQ TAB PO SCH (22:58)
[2024-01-17] MEDS: OXcarbazepine 300 MG TAB PO SCH (22:58)
[2024-01-17] MEDS: Famotidine 20 MG TAB PO SCH (22:58)
[2024-01-17 23:28] VITALS: BMI 24.5
[2024-01-18 00:04] LABS: Legionella Urinary Ag Negative (Negative); Strep pneumo Urine Ag NEGATIVE (NEGATIVE)
[2024-01-18 00:12] LABS: Amphetamine Detected (NotDetected); Barbiturates Screen Not Detected (NotDetected); Benzodiazepine Screen Not Detected (NotDetected); Cocaine Metabolite Screen Detected (NotDetected); Methadone Not Detected (NotDetected); Methamphetamine Detected (NotDetected); Opiate Screen Not Detected (NotDetected); Oxycodone Screen Not Detected (NotDetected); Phencyclidine (PCP) Not Detected (NotDetected); THC/Cannabinoid Screen Detected (NotDetected); Tricyclic Screen Not Detected (NotDetected)
[2024-01-18 05:52] LABS: #Basophils Less than 0.03 10x3/uL (0.0-0.2); #Eosinophils Less than 0.03 10x3/uL (0.0-0.7); %Lymphocytes 9.2 % (21.0-51.0); %Monocytes 4.2 % (0.0-10.0); %Neutrophils 86.4 % (42.0-75.0); Hematocrit 32.9 % (36.0-47.0); Hemoglobin 10.8 g/dL (12.0-16.0); Mean Corpuscular HGB CONC 32.8 g/dL (32.0-36.0); Mean Corpuscular Hemoglobin 29.9 pg (27.0-31.0); Mean Corpuscular Volume 91.1 fL (78.0-98.0); Mean Platelet Volume 10.6 fL (7.4-10.4); Platelet Count 181 10x3/uL (130-400); RBC Distribution Width 15.7 % (11.5-14.5); Red Blood Cell (RBC) Count 3.61 mill/uL (4.20-5.40)
[2024-01-18 06:14] LABS: ALT (SGPT) 21 U/L (8-55); AST (SGOT) 18 U/L (5-34); Albumin 3.4 g/dL (3.5-5.0); Alkaline Phosphatase 97 U/L (40-110); Anion Gap 12 mmol/L (10-20); BUN (Urea Nitrogen) 14 mg/dL (7.0-18.7); Bilirubin, Total 0.3 mg/dL (0.2-1.2); Calc. Creatinine Clearance 95 mL/min (70-130); Carbon Dioxide 21 mmol/L (22-29); Chloride 108 mmol/L (98-107); Estimated GFR 107; Globulin 3.3 g/dL (2.4-3.5); Glucose 202 mg/dL (70-105); Potassium 3.9 mmol/L (3.5-5.1); Protein, Total 6.7 g/dL (6.0-8.3); Sodium 137 mmol/L (136-145)
[2024-01-18] MEDS: Enoxaparin 40 MG (0.4 mL) SYRINGE SC SCH (08:22)
[2024-01-18] MEDS: methylPREDNISolone Sod Succ 40 MG VIAL IVP SCH (08:23)
[2024-01-18] MEDS: FLUoxetine HCl 20 MG CAP PO SCH (08:23)
[2024-01-18] MEDS: Gabapentin 300 MG CAP PO SCH (08:23)
[2024-01-18] MEDS: risperiDONE 1 MG TAB PO SCH (08:23)
[2024-01-18] MEDS: FLU (Fluarix Triv) TS24-25(6MOS UP)/PF 45 MCG/0.5 ML Syringe IM ONE (08:26)
[2024-01-18] MEDS ORDERED: Albuterol 1.25 MG (3 mL) NEB NEB PRN (14:52)
[2024-01-18 15:16] VITALS: BMI 24.5
[2024-01-18] MEDS: Vancomycin (BATCH) 1.5 GM in Premix 1 BAG IVPB SCH (17:31)
[2024-01-18] MEDS: Lorazepam 2 MG/ML VIAL SLOW IVP PRN (17:38)
[2024-01-18] MEDS: Vancomycin 1 GM in Sodium Chloride 0.9% 250 ML 250 ML IVPB SCH (17:50)
[2024-01-19] MEDS: Vancomycin 1 GM in Premix 1 BAG IVPB SCH (05:32)
[2024-01-19 07:19] LABS: #Basophils Less than 0.03 10x3/uL (0.0-0.2); #Eosinophils Less than 0.03 10x3/uL (0.0-0.7); %Basophils 0.1 % (0.0-1.0); %Eosinophils 0.2 % (0.0-10.0); %Lymphocytes 24.1 % (21.0-51.0); %Monocytes 4.5 % (0.0-10.0); %Neutrophils 70.8 % (42.0-75.0); Hematocrit 32.6 % (36.0-47.0); Hemoglobin 10.6 g/dL (12.0-16.0); Mean Corpuscular HGB CONC 32.5 g/dL (32.0-36.0); Mean Corpuscular Hemoglobin 29.8 pg (27.0-31.0); Mean Corpuscular Volume 91.6 fL (78.0-98.0); Mean Platelet Volume 10.5 fL (7.4-10.4); Platelet Count 183 10x3/uL (130-400); RBC Distribution Width 16.7 % (11.5-14.5); Red Blood Cell (RBC) Count 3.56 mill/uL (4.20-5.40)
[2024-01-19 07:59] LABS: Vancomycin, Random 23.4 ug/mL (See Comment)
[2024-01-19 08:03] LABS: ALT (SGPT) 18 U/L (8-55); AST (SGOT) 12 U/L (5-34); Albumin 3.2 g/dL (3.5-5.0); Alkaline Phosphatase 68 U/L (40-110); Anion Gap 12 mmol/L (10-20); BUN (Urea Nitrogen) 17 mg/dL (7.0-18.7); Bilirubin, Total 0.2 mg/dL (0.2-1.2); Calc. Creatinine Clearance 90 mL/min (70-130); Calcium 8.6 mg/dL (7.8-10.44); Carbon Dioxide 25 mmol/L (22-29); Chloride 106 mmol/L (98-107); Estimated GFR 100; Globulin 2.8 g/dL (2.4-3.5); Glucose 95 mg/dL (70-105); Sodium 139 mmol/L (136-145)
[2024-01-19] MEDS ORDERED: risperiDONE 1 MG TAB PO SCH (09:00)
[2024-01-19] MEDS ORDERED: OXcarbazepine 300 MG TAB PO SCH (09:00)
[2024-01-20 04:57] LABS: #Basophils Less than 0.03 10x3/uL (0.0-0.2); #Eosinophils Less than 0.03 10x3/uL (0.0-0.7); %Basophils 0.3 % (0.0-1.0); %Eosinophils 0.1 % (0.0-10.0); %Monocytes 5.6 % (0.0-10.0); %Neutrophils 68.7 % (42.0-75.0); Hematocrit 35.6 % (36.0-47.0); Hemoglobin 11.6 g/dL (12.0-16.0); Mean Corpuscular HGB CONC 32.6 g/dL (32.0-36.0); Mean Corpuscular Hemoglobin 29.6 pg (27.0-31.0); Mean Corpuscular Volume 90.8 fL (78.0-98.0); Mean Platelet Volume 10.3 fL (7.4-10.4); Platelet Count 202 10x3/uL (130-400); RBC Distribution Width 16.4 % (11.5-14.5); Red Blood Cell (RBC) Count 3.92 mill/uL (4.20-5.40)
[2024-01-20 05:16] LABS: ALT (SGPT) 27 U/L (8-55); AST (SGOT) 17 U/L (5-34); Albumin 3.3 g/dL (3.5-5.0); Alkaline Phosphatase 74 U/L (40-110); Anion Gap 13 mmol/L (10-20); BUN (Urea Nitrogen) 21 mg/dL (7.0-18.7); Bilirubin, Total 0.2 mg/dL (0.2-1.2); Calc. Creatinine Clearance 90 mL/min (70-130); Calcium 9.1 mg/dL (7.8-10.44); Carbon Dioxide 28 mmol/L (22-29); Chloride 103 mmol/L (98-107); Estimated GFR 100; Globulin 3.1 g/dL (2.4-3.5); Glucose 95 mg/dL (70-105); Potassium 3.9 mmol/L (3.5-5.1); Protein, Total 6.4 g/dL (6.0-8.3); Sodium 140 mmol/L (136-145)
[2024-01-20] MEDS: guaiFENesin ER 600 MG TAB PO SCH ×2 (10:29→19:55)
[2024-01-20] MEDS: Saccharomyces boulardii 250 MG CAP PO SCH (10:29)
[2024-01-20] MEDS: Doxycycline 100 MG CAP PO SCH (19:55)
[2024-01-20] MEDS: methylPREDNISolone Sod Succ 40 MG VIAL IVP SCH (19:56)
[2024-01-20] MEDS: Loperamide HCl 2 MG CAP PO PRN (20:00)
[2024-01-20 22:12] LABS: Mycoplasma pneumoniae IgG AB 1402 U/mL (0-99); Mycoplasma pneumoniae IgM AB 1190 U/mL (0-769)
[2024-01-21] MEDS: Saccharomyces boulardii 250 MG CAP PO SCH (08:35)
[2024-01-21] MEDS: methylPREDNISolone Sod Succ 40 MG VIAL IVP SCH (10:14)
[2024-01-22 08:04] VITALS: TEMP 98.1
[2024-01-22 12:31] VITALS: BP 121/76
== END 2024-01-22 14:11 | disposition home or self-care (01) | DRG 189 ==
LOC: ERS 14:16 → T4-A 17:28 → OBSVTOIN 01-18 11:07
PROVIDERS: ADMIT Internal Medicine; ATTEND Family Medicine
DX: J96.01 Acute respiratory failure with hypoxia (principal); J44.1 Chronic obstructive pulmonary disease with (acute) exacerbation; J45.901 Unspecified asthma with (acute) exacerbation; F17.210 Nicotine dependence, cigarettes, uncomplicated; F29 Unspecified psychosis not due to a substance or known physiological condition; D64.9 Anemia, unspecified; F41.9 Anxiety disorder, unspecified; Z71.6 Tobacco abuse counseling; Z71.51 Drug abuse counseling and surveillance of drug abuser; Z88.0 Allergy status to penicillin; Z88.2 Allergy status to sulfonamides; Z90.49 Acquired absence of other specified parts of digestive tract; Z79.899 Other long term (current) drug therapy
CPT/HCPCS: 36415; 36416; 51701; 71045; 71275; 80053; 80202; 80306; 81001; 82728; 83540; 83550; 83605; 83735; 83880; 84100; 84145; 84484; 84703; 85025; 87040; 87149; 87428; 87449; 87507; 87899; 90656; 93005; 94640; 94760; 96365; 96372; 96375; 96376; G0378; J0456; J0696; J1650; J2060; J2919; J3370; J3370-JW; J7620; Q9967

== ENCOUNTER 2024-04-11 06:10 | Emergency (ER) | payer OTHER ==
[2024-04-11] MEDS ORDERED: Magnesium 2 GM/50 ML BAG (IN WATER) ONE (06:28)
[2024-04-11] MEDS ORDERED: Dexamethasone 10 MG/ML VIAL ONE (06:28)
[2024-04-11 06:39] LABS: #Basophils Less than 0.03 10x3/uL (0.0-0.2); %Basophils 0.3 % (0.0-1.0); %Eosinophils 4.4 % (0.0-10.0); %Lymphocytes 30.3 % (21.0-51.0); %Monocytes 4.4 % (0.0-10.0); %Neutrophils 60.3 % (42.0-75.0); Hematocrit 46.9 % (36.0-47.0); Hemoglobin 15.9 g/dL (12.0-16.0); Mean Corpuscular HGB CONC 33.9 g/dL (32.0-36.0); Mean Corpuscular Hemoglobin 29.3 pg (27.0-31.0); Mean Corpuscular Volume 86.4 fL (78.0-98.0); Mean Platelet Volume 9.5 fL (7.4-10.4); Platelet Count 261 10x3/uL (130-400); RBC Distribution Width 15.3 % (11.5-14.5); Red Blood Cell (RBC) Count 5.43 mill/uL (4.20-5.40)
[2024-04-11 06:52] LABS: ALT (SGPT) 14 U/L (8-55); AST (SGOT) 18 U/L (5-34); Albumin 4.5 g/dL (3.5-5.0); Alkaline Phosphatase 68 U/L (40-110); Anion Gap 16 mmol/L (10-20); BUN (Urea Nitrogen) 13 mg/dL (7.0-18.7); Bilirubin, Total 0.2 mg/dL (0.2-1.2); Calc. Creatinine Clearance 0 mL/min (70-130); Calcium 9.1 mg/dL (7.8-10.44); Carbon Dioxide 22 mmol/L (22-29); Chloride 109 mmol/L (98-107); Estimated GFR 89; Glucose 94 mg/dL (70-105); Potassium 3.6 mmol/L (3.5-5.1); Protein, Total 8.5 g/dL (6.0-8.3); Sodium 143 mmol/L (136-145)
== END 2024-04-11 07:50 | disposition home or self-care (01) ==
LOC: ERS 06:10
DX: J45.901 Unspecified asthma with (acute) exacerbation (principal); F17.210 Nicotine dependence, cigarettes, uncomplicated
CPT/HCPCS: 71045; 80053; 85025; 94760; 96374; 96375; J1100; J3475

== ENCOUNTER 2024-06-04 05:20 | Emergency (ER) | payer OTHER, SELFPAY ==
[2024-06-04] MEDS ORDERED: Albuterol 2.5 MG (3 mL) NEB ONE (05:31)
[2024-06-04 06:01] LABS: #Basophils 0.03 10x3/uL (0.0-0.2); %Basophils 0.4 % (0.0-1.0); %Eosinophils 7.2 % (0.0-10.0); %Lymphocytes 27.8 % (21.0-51.0); %Monocytes 7.7 % (0.0-10.0); %Neutrophils 56.5 % (42.0-75.0); Hematocrit 36.5 % (36.0-47.0); Hemoglobin 12.4 g/dL (12.0-16.0); Mean Corpuscular Hemoglobin 30.1 pg (27.0-31.0); Mean Corpuscular Volume 88.6 fL (78.0-98.0); Mean Platelet Volume 10.5 fL (7.4-10.4); Platelet Count 246 10x3/uL (130-400); RBC Distribution Width 14.6 % (11.5-14.5); Red Blood Cell (RBC) Count 4.12 mill/uL (4.20-5.40)
[2024-06-04 06:16] LABS: ALT (SGPT) 15 U/L (Less than 34); AST (SGOT) 28 U/L (11-34); Albumin 3.6 g/dL (3.1-4.5); Alkaline Phosphatase 93 U/L (40-110); Anion Gap 13 mmol/L (10-20); BHCG - Serum Negative (NEGATIVE); BUN (Urea Nitrogen) 13 mg/dL (7.0-18.7); Bilirubin, Total 0.4 mg/dL (0.3-1.2); Calc. Creatinine Clearance 0 mL/min (70-130); Calcium 8.4 mg/dL (7.8-10.44); Carbon Dioxide 24 mmol/L (22-29); Chloride 111 mmol/L (98-107); Estimated GFR 99; Globulin 3.3 g/dL (2.4-3.5); Glucose 106 mg/dL (70-105); Magnesium 2.8 mg/dL (1.6-2.6); Potassium 3.6 mmol/L (3.5-5.1); Pregs Control Background? CLEAR/WHITE (CLR/WHITE); Pregs Control Bar Appear? YES (CONTROL BAR); Protein, Total 6.9 g/dL (6.0-8.3); Sodium 144 mmol/L (136-145)
[2024-06-04 06:21] LABS: Troponin I Less than 0.010 ng/mL (< 0.028)
== END 2024-06-04 07:36 | disposition home or self-care (01) ==
LOC: ERS 05:20
DX: J45.901 Unspecified asthma with (acute) exacerbation (principal); F17.210 Nicotine dependence, cigarettes, uncomplicated
CPT/HCPCS: 71045; 80053; 83735; 83880; 84484; 84703; 85025; 93005; J7611